=== PATIENT | male | born 1970 | race Two or more races ===

== ENCOUNTER 2019-11-08 06:00 | Day surgery (SDC) | payer OTHER | END 2019-11-08 13:30 | disposition home or self-care (01) | LOC: AMB-ENDOS 06:00 | PROVIDERS: ATTEND Surgery | DX: K62.89 Other specified diseases of anus and rectum (principal); Z93.3 Colostomy status ==

== ENCOUNTER 2019-12-12 09:30 | Inpatient (IN) | payer OTHER ==
[~2019-12-12] VITALS: Ht 165.1 cm; Wt 69.9 kg
[2019-12-22] MEDS ORDERED: HYOSCYAMINE0.125 M1 SL (13:41)
[2019-12-22] MEDS ORDERED: OXYC1TAB9 PO (13:41)
== END 2019-12-22 14:35 | disposition home or self-care (01) | DRG 331 ==
LOC: SURH 12-19 07:00 → O/R 12-19 08:57 → SURH 12-19 08:57
PROVIDERS: ADMIT Surgery; ATTEND Surgery
PROC: 0DTP4ZZ Resection of Rectum, Percutaneous Endoscopic Approach (ICD-10-PCS; 2019-12-19)
PROC: 0DSN4ZZ Reposition Sigmoid Colon, Percutaneous Endoscopic Approach (ICD-10-PCS; 2019-12-19)
PROC: 0DBN4ZZ Excision of Sigmoid Colon, Percutaneous Endoscopic Approach (ICD-10-PCS; principal; 2019-12-19 07:00)
DX: Z43.3 Encounter for attention to colostomy (principal); K57.30 Diverticulosis of large intestine without perforation or abscess without bleeding; D64.9 Anemia, unspecified